=== PATIENT | female | born 1995 | race Caucasian/White ===

== ENCOUNTER → 2018-04-17 11:05 | Outpatient (CLI) | payer MEDICAID ==
[2016-02-11 09:44] VITALS: BMI 26.1
[~2018-04-17 11:05] MED LIST: CEFPROZIL500 MG PO; FLAGYL500 MG PO; IBUPROFEN600 MG PO; KEFLEX500 MG PO; PERCOCET 5-3251 TAB PO; PHENERGAN DM SYR5 ML PO; PRENATAL COMPLE1 TAB PO; ZOVIRAX400 MG PO
== END | disposition home or self-care (01) ==
LOC: D.US 11:05
PROVIDERS: ATTEND Family Medicine
DX: O26.899 Other specified pregnancy related conditions, unspecified trimester (principal); R10.30 Lower abdominal pain, unspecified

== ENCOUNTER 2018-05-26 01:21 | Emergency (ER) | payer MEDICAID ==
[2018-05-26] MEDS ORDERED: NEURONTIN600 MG PO (01:26)
[2018-05-26] MEDS ORDERED: PHENERGAN25 M1 PO (01:26)
[2018-05-26] MEDS ORDERED: ULTRAM50 MG PO (01:26)
[2018-05-26] MEDS ORDERED: PRENATAL VIT (01:27)
[2018-05-26] MEDS ORDERED: FERROUS SULFAT325 MG PO (01:27)
[2018-05-26 02:06] LABS: APPEARANCE HAZY (CLEAR); BACTERIA FEW /hpf (NONE SEEN); BILIRUBIN NEGATIVE (NEGATIVE); COLOR YELLOW (YELLOW); EPITHELIAL CELLS 0-5 /hpf (0-5); GLUCOSE NEGATIVE (NEGATIVE); KETONE NEGATIVE (NEGATIVE); MUCUS >1+ /lpf (NONE SEEN); NITRITE NEGATIVE (NEGATIVE); PROTEIN NEGATIVE (NEGATIVE); RED CELLS - URINE 0-5 /hpf (0-5); SPECIFIC GRAVITY 1.025 (1.005-1.020); UROBILINOGEN NORMAL (NORMAL)
[2018-05-26] MEDS ORDERED: KEFLEX500 MG PO (02:24)
[2018-05-26] MEDS ORDERED: TYLENOL W/CODEI1 TAB PO (02:24)
== END 2018-05-26 02:45 | disposition home or self-care (01) ==
LOC: D.ER 01:21
PROVIDERS: Emergency Medicine
DX: O23.41 Unspecified infection of urinary tract in pregnancy, first trimester (principal); Z3A.11 11 weeks gestation of pregnancy; K08.89 Other specified disorders of teeth and supporting structures

== ENCOUNTER → 2018-07-09 00:39 | Outpatient (CLI) | payer MEDICAID ==
[2018-05-26 01:25] VITALS: BMI 26.1
[~2018-07-09 00:39] MED LIST changes: +FERROUS SULFAT325 MG PO; +NEURONTIN600 MG PO; +PHENERGAN25 M1 PO; +PRENATAL VIT; +TYLENOL W/CODEI1 TAB PO; +ULTRAM50 MG PO
[2018-07-09 01:43] LABS: HEMATOCRIT 33.4 % (36.0-48.0); HEMOGLOBIN 12.1 g/dL (12-16); MCH 30.5 pg (26.0-34.0); MCHC 36.2 g/dL (31.0-37.0); MCV 84.1 fL (80.0-100.0); MEAN PLATELET VOLUME 8.9 fL (7.4-10.4); NEUTROPHILS 63.3 % (40-80); PLATELET COUNT 199 10x3/uL (130-400); RBC 3.97 10x6/uL (4.00-5.40); RDW 12.5 % (11.5-14.5); WBC 8.3 10x3/uL (4.8-10.8)
[2018-07-09 01:47] LABS: APPEARANCE HAZY (CLEAR); BILIRUBIN NEGATIVE (NEGATIVE); COLOR YELLOW (YELLOW); GLUCOSE NEGATIVE (NEGATIVE); KETONE SMALL mg/dL (NEGATIVE); NITRITE NEGATIVE (NEGATIVE); PROTEIN TRACE mg/dL (NEGATIVE); SPECIFIC GRAVITY 1.025 (1.005-1.020); UROBILINOGEN NORMAL (NORMAL)
[2018-07-09 01:52] LABS: BACTERIA MODERATE /hpf (NONE SEEN); EPITHELIAL CELLS OCC /hpf (0-5); HYALINE CAST RARE /lpf (NONE SEEN); MUCUS >1+ /lpf (NONE SEEN); RED CELLS - URINE 0-5 /hpf (0-5); WHITE CELLS - URINE 0-5 /hpf (0-5)
[2018-07-09 02:08] LABS: ALBUMIN 2.9 g/dL (3.4-5.0); ALKALINE PHOSPHATASE 40 U/L (46-116); ALT (SGPT) 19 U/L (10-68); BILIRUBIN - TOTAL 0.32 mg/dL (0.2-1.3); CALC OSMOLALITY 270 mosm/kg (275-300); CALCIUM 7.9 mg/dL (8.5-10.1); CARBON DIOXIDE 23.7 mmol/L (21.0-32.0); CHLORIDE - SERUM 103 mmol/L (98-107); CREATININE - SERUM 0.5 mg/dL (0.6-1.3); GLUCOSE 90 mg/dL (74-106); POTASSIUM - SERUM 3.2 mmol/L (3.5-5.1); PROTEIN - SERUM 6.3 g/dL (6.4-8.2); SODIUM 137 mmol/L (136-145); UREA NITROGEN 4 mg/dL (7-18); eGFR NON AFRICAN AMERICAN > 90 mL/min (90-120)
[2018-07-11 19:08] LABS: CHLAMYDIA TRACHOMATIS, NAA Negative (Negative)
== END | disposition home or self-care (01) ==
LOC: D.LDO 00:39
PROVIDERS: ATTEND Obstetrics & Gynecology
DX: O26.892 Other specified pregnancy related conditions, second trimester (principal); Z3A.17 17 weeks gestation of pregnancy

== ENCOUNTER → 2018-10-17 14:26 | Outpatient (CLI) | payer MEDICAID ==
[2018-05-26 01:25] VITALS: BMI 26.1
[~2018-10-17 14:26] MED LIST changes: +ACETAMINOPHEN500 M1 PO; +ALBUTEROL SULF8.5 GM INH
[2018-10-17 15:04] LABS: BASOPHILS 0 % (0-2); EOSINOPHILS 1.1 % (0-7); HEMATOCRIT 32.4 % (36.0-48.0); HEMOGLOBIN 11.3 g/dL (12-16); IMMATURE GRANULOCYTES 0.4 % (0-5); LYMPHOCYTES 23.5 % (15-50); MCH 29.8 pg (26.0-34.0); MCHC 34.9 g/dL (31.0-37.0); MCV 85.5 fL (80.0-100.0); MEAN PLATELET VOLUME 9.6 fL (7.4-10.4); MONOCYTES 9.1 % (2-11); NEUTROPHILS 65.9 % (40-80); RBC 3.79 10x6/uL (4.00-5.40); RDW 13.5 % (11.5-14.5); WBC 7.6 10x3/uL (4.8-10.8)
[2018-10-17 15:05] LABS: PLATELET COUNT 241 10x3/uL (130-400)
[2018-10-17 15:05] LABS: APPEARANCE SL CLDY (CLEAR); BILIRUBIN NEGATIVE (NEGATIVE); COLOR YELLOW (YELLOW); GLUCOSE NEGATIVE (NEGATIVE); KETONE NEGATIVE (NEGATIVE); NITRITE NEGATIVE (NEGATIVE); PROTEIN TRACE mg/dL (NEGATIVE); UROBILINOGEN NORMAL (NORMAL)
[2018-10-17 15:06] LABS: BACTERIA FEW /hpf (NONE SEEN); RED CELLS - URINE 0-5 /hpf (0-5)
[2018-10-17 15:07] LABS: MUCUS <1+ /lpf (NONE SEEN)
[2018-10-17 15:17] LABS: ALBUMIN 2.6 g/dL (3.4-5.0); ALKALINE PHOSPHATASE 104 U/L (46-116); ALT (SGPT) 26 U/L (10-68); BILIRUBIN - TOTAL 0.15 mg/dL (0.2-1.3); CALC OSMOLALITY 278 mosm/kg (275-300); CALCIUM 8.4 mg/dL (8.5-10.1); CARBON DIOXIDE 22.9 mmol/L (21.0-32.0); CHLORIDE - SERUM 107 mmol/L (98-107); CREATININE - SERUM 0.5 mg/dL (0.6-1.3); GLUCOSE 109 mg/dL (74-106); POTASSIUM - SERUM 3.9 mmol/L (3.5-5.1); PROTEIN - SERUM 5.9 g/dL (6.4-8.2); SODIUM 141 mmol/L (136-145); UREA NITROGEN 5 mg/dL (7-18); eGFR NON AFRICAN AMERICAN > 90 mL/min (90-120)
== END | disposition home or self-care (01) ==
LOC: D.LDO 14:26
PROVIDERS: ATTEND Obstetrics & Gynecology
DX: O36.8130 Decreased fetal movements, third trimester, not applicable or unspecified (principal); Z3A.32 32 weeks gestation of pregnancy

== ENCOUNTER → 2018-11-04 14:04 | Outpatient (CLI) | payer MEDICAID ==
[2018-05-26 01:25] VITALS: BMI 26.1
[2018-11-04 15:05] LABS: APPEARANCE CLEAR (CLEAR); BILIRUBIN NEGATIVE (NEGATIVE); COLOR YELLOW (YELLOW); GLUCOSE NEGATIVE (NEGATIVE); KETONE NEGATIVE (NEGATIVE); NITRITE NEGATIVE (NEGATIVE); PROTEIN NEGATIVE (NEGATIVE); UROBILINOGEN NORMAL (NORMAL)
[2018-11-04 15:07] LABS: BACTERIA FEW /hpf (NEGATIVE); EPITHELIAL CELLS 0-5 /hpf (0-5); WHITE CELLS - URINE 0-5 /hpf (NEGATIVE)
== END | disposition home or self-care (01) ==
LOC: D.LDO 14:04
PROVIDERS: ATTEND Student in an Organized Health Care Education/Training Program
DX: O26.893 Other specified pregnancy related conditions, third trimester (principal); Z3A.34 34 weeks gestation of pregnancy

== ENCOUNTER 2018-11-16 03:01 | Outpatient (CLI) | payer MEDICAID ==
[2018-05-26 01:25] VITALS: BMI 26.1
[2018-11-16 03:46] LABS: UDS - AMPHET NEGATIVE QUAL (NEGATIVE); UDS - BARB POSITIVE QUAL (NEGATIVE); UDS - BENZO NEGATIVE QUAL (NEGATIVE); UDS - COCAINE NEGATIVE QUAL (NEGATIVE); UDS - OPIATE NEGATIVE QUAL (NEGATIVE); UDS - PCP NEGATIVE QUAL (NEGATIVE); UDS - THC NEGATIVE QUAL (NEGATIVE)
[2018-11-16 03:50] LABS: COLOR DK YELLOW (YELLOW)
[2018-11-16 03:51] LABS: APPEARANCE HAZY (CLEAR); BACTERIA FEW /hpf (NEGATIVE); BILIRUBIN NEGATIVE (NEGATIVE); EPITHELIAL CELLS 0-5 /hpf (0-5); GLUCOSE NEGATIVE (NEGATIVE); KETONE LARGE mg/dL (NEGATIVE); NITRITE NEGATIVE (NEGATIVE); PROTEIN TRACE mg/dL (NEGATIVE); SPECIFIC GRAVITY 1.015 (1.005-1.020); UROBILINOGEN NORMAL (NORMAL); WHITE CELLS - URINE 25-50 /hpf (NEGATIVE)
== END 2018-11-16 04:55 | disposition home or self-care (01) ==
LOC: D.LDO 03:01
PROVIDERS: ATTEND Student in an Organized Health Care Education/Training Program
DX: O47.9 False labor, unspecified (principal)

== ENCOUNTER → 2018-11-22 10:47 | Outpatient (CLI) | payer MEDICAID ==
[2018-05-26 01:25] VITALS: BMI 26.1
[~2018-11-22 10:47] MED LIST changes: +VALTREX500 MG PO
[2018-11-22 11:39] LABS: APPEARANCE CLEAR (CLEAR); COLOR YELLOW (YELLOW); NITRITE NEGATIVE (NEGATIVE); PROTEIN TRACE mg/dL (NEGATIVE)
[2018-11-22 11:40] LABS: BACTERIA FEW /hpf (NEGATIVE); BILIRUBIN NEGATIVE (NEGATIVE); GLUCOSE NEGATIVE (NEGATIVE); KETONE NEGATIVE (NEGATIVE); UROBILINOGEN NORMAL (NORMAL)
[2018-11-22 11:41] LABS: CALCIUM OXALATE CRYSTALS 0-5 /hpf (NONE SEEN); EPITHELIAL CELLS 0-5 /hpf (0-5); RED CELLS - URINE 0-5 /hpf (0-5); WHITE CELLS - URINE 0-5 /hpf (NEGATIVE)
== END | disposition home or self-care (01) ==
LOC: D.LDO 10:47
PROVIDERS: ATTEND Obstetrics & Gynecology
DX: O47.9 False labor, unspecified (principal)

== ENCOUNTER → 2018-11-25 18:06 | Outpatient (CLI) | payer MEDICAID ==
[2018-05-26 01:25] VITALS: BMI 26.1
[2018-11-25 18:57] LABS: APPEARANCE CLEAR (CLEAR); BILIRUBIN NEGATIVE (NEGATIVE); COLOR YELLOW (YELLOW); GLUCOSE NEGATIVE (NEGATIVE); KETONE NEGATIVE (NEGATIVE); NITRITE NEGATIVE (NEGATIVE); PROTEIN NEGATIVE (NEGATIVE); UROBILINOGEN NORMAL (NORMAL)
[2018-11-25 18:58] LABS: BACTERIA FEW /hpf (NEGATIVE); RED CELLS - URINE 0-5 /hpf (0-5); WHITE CELLS - URINE OCC /hpf (NEGATIVE)
== END | disposition home or self-care (01) ==
LOC: D.LDO 18:06
PROVIDERS: ATTEND Student in an Organized Health Care Education/Training Program
DX: O26.893 Other specified pregnancy related conditions, third trimester (principal); Z3A.37 37 weeks gestation of pregnancy; R10.9 Unspecified abdominal pain

== ENCOUNTER → 2018-11-27 15:15 | Outpatient (CLI) | payer MEDICAID ==
[2018-05-26 01:25] VITALS: BMI 26.1
== END | disposition home or self-care (01) ==
LOC: D.LDO 15:15
PROVIDERS: ATTEND Obstetrics & Gynecology
DX: O36.8130 Decreased fetal movements, third trimester, not applicable or unspecified (principal); Z3A.37 37 weeks gestation of pregnancy

== ENCOUNTER 2018-12-03 21:12 | Inpatient (IN) | payer MEDICAID ==
[~2018-12-03] VITALS: Ht 170.2 cm; Wt 76.2 kg
[~2018-12-03 21:12] MED LIST changes: -VALTREX500 MG PO
[2018-12-03 22:07] VITALS: BP 121/83; Ht 170.2 cm; Wt 76.2 kg
[2018-12-03] MEDS ORDERED: VALTREX500 MG PO (22:07)
[2018-12-03 22:46] LABS: HEMATOCRIT 39.3 % (36.0-48.0); HEMOGLOBIN 13.4 g/dL (12-16); MCH 29.9 pg (26.0-34.0); MCHC 34.1 g/dL (31.0-37.0); MCV 87.7 fL (80.0-100.0); MEAN PLATELET VOLUME 10.5 fL (7.4-10.4); RBC 4.48 10x6/uL (4.00-5.40); RDW 13.7 % (11.5-14.5); WBC 7.4 10x3/uL (4.8-10.8)
[2018-12-03 22:50] LABS: APPEARANCE HAZY (CLEAR); BILIRUBIN NEGATIVE (NEGATIVE); COLOR DK YELLOW (YELLOW); GLUCOSE NEGATIVE (NEGATIVE); KETONE SMALL mg/dL (NEGATIVE); NITRITE NEGATIVE (NEGATIVE); PROTEIN TRACE mg/dL (NEGATIVE); UROBILINOGEN NORMAL (NORMAL)
[2018-12-03 22:52] LABS: BACTERIA MANY /hpf (NEGATIVE); EPITHELIAL CELLS 0-5 /hpf (0-5); RED CELLS - URINE 25-50 /hpf (0-5)
[2018-12-03 22:53] LABS: UDS - AMPHET NEGATIVE QUAL (NEGATIVE); UDS - BARB NEGATIVE QUAL (NEGATIVE); UDS - BENZO NEGATIVE QUAL (NEGATIVE); UDS - COCAINE NEGATIVE QUAL (NEGATIVE); UDS - OPIATE NEGATIVE QUAL (NEGATIVE); UDS - PCP NEGATIVE QUAL (NEGATIVE); UDS - THC NEGATIVE QUAL (NEGATIVE)
--- NOTE | 2018-12-04 19:19 | NUR ---
BEDSIDE REPORT COMPLETED.
--- NOTE | 2018-12-04 19:38 | NUR ---
PT AMBULATORY IN HALLWAY WITH SIGNIFICANT OTHER.
[2018-12-04 20:20] VITALS: BP 123/76
--- NOTE | 2018-12-04 20:20 | NUR ---
SHIFT ASSESSMENT COMPLETED, SEE FLOWSHEET
--- NOTE | 2018-12-04 20:30 | NUR ---
DR WOODSON CALLED FOR PAIN MEDICATION ORDERS, NEW ORDERS NOTED. SEE EMAR
--- NOTE | 2018-12-04 20:35 | NUR ---
ADMINISTERED TORADOL PER MD ORDERS. SSEE EMAR
--- NOTE | 2018-12-04 21:40 | NUR ---
ADMINISTERED TYLENOL#3 AND XANAX PER MD ORDERS AND PT REQUEST. SEE EMAR
--- NOTE | 2018-12-04 23:30 | NUR ---
PT SITTING UP IN BED HOLDING , SIGNIFICANT OTHER IN BED WITH HER. STATES THAT SHE IS READY FOR MORE PAIN MEDICINE. EXPLAINED THAT IT WASNT TIME YET, PT VERBALIZES UNDERSTANDING.
--- NOTE | 2018-12-05 | NUR ---
PT AMBULATING IN HALLWAY, NO NEEDS IDENTIFIED.
--- NOTE | 2018-12-05 00:10 | NUR ---
PT BACK TO ROOM.
--- NOTE | 2018-12-05 00:30 | NUR ---
PT AMBULATING IN HALLWAY
--- NOTE | 2018-12-05 00:45 | NUR ---
PT BACK TO LABOR UNIT, ASKING WHERE A VENDING MACHINE IS. PT GIVEN DIRECTIONS TO THE NEAREST VENDING MACHINE.
--- NOTE | 2018-12-05 00:50 | NUR ---
PT BACK TO ROOM, PT VOIDED EARLIER AND HAD A SMALL BLOD CLOT THAT SHE HAD SAVED ON SOME TISSUE. STATES THAT SHE WANTED ME TO SEE IT. QUARTER SIZED CLOT NOTED, ASSURED PT THAT IT WAS NORMAL AFTER LYING DOWN TO HAVE SMALL BLOOD CLOTS. PT VERBALIZED UNDERSTANDING. WILL CONTINUE TO MONITOR
--- NOTE | 2018-12-05 01:30 | NUR ---
PT AMBULATING IN HALLWAY TALKING ON HER CELL PHONE.
--- NOTE | 2018-12-05 01:45 | NUR ---
PT BACK TO ROOM, REQUESTING PAIN MEDICATION.
--- NOTE | 2018-12-05 01:46 | NUR ---
ADMINISTERED TYLENOL #3 PER MD ORDERS, PT REQUESTING VALIUM. STATES THAT THE LENCHOX IS MAKING HER WIRED AND THAT IF SHE TAKES VALIUM SHE CAN USUALLY CALM DOWN. EXPLAINED TO PT THAT SHE DIDNT HAVE THAT ORDERED.
[2018-12-05 01:47] VITALS: BP 128/79
--- NOTE | 2018-12-05 03:11 | NUR ---
TORADOL ADMINISTERED, SEE EMAR
--- NOTE | 2018-12-05 03:15 | NUR ---
PT REQUESTING THE NURSERY PHONE NUMBER FOR A BREAST PUMP. PHONE NUMBER PROVIDED AND THIS RN WENT TO THE NURSERY TO INFORM KENZIE OF PTS REQUEST. BREAST PUMP TO PATIENT PER THIS RN. PT IN BATHROOM AT THIS TIME AND INFORMED TO CALL KENZIE WHEN SHE WAS READY TO USE THE PUMP AND SHE WOULD ASSIST HER.
[2018-12-05 07:13] LABS: RAPID PLASMA REAGIN Non Reactive (Non Reactive)
--- NOTE | 2018-12-05 08:43 | NUR ---
THIS RN TO ROOM FOR SHIFT ASSESSMENT. SHIFT ASSESSMENT COMPLETED, PT RATING PAIN 7/10 AT THIS TIME, REQUESTING PAIN MEDS. MEDS ADMIN ORDERED PRN PAIN AND SCHEDULED ANTIBIOTIC, SEE EMAR FOR DOC. PT DENIES CONCERNS WITH HEAVY LOCHIA, REPORTS PASSING A LARGE CLOT DURING THE NIGHT WHICH SHE SHOWED TO HER NURSE, BUT STATES BLEEDING HAS BEEN INJECTION SPECIALIST SINCE. PT INSTRUCTED ON S/S TO REPORT. FF, ML, U/2. SMALL RUBRA LOCHIA. THIS RN LOOKS TO ASSESS IV AND PT REPORTS HER IV HUNG ON SOMETHING IN HER PURSE AND GOT PULLED OUT, BUT DID PT ATTEMPTING TO FEED INFANT AT THIS TIME, WILL RETURN FOR VS WHEN PT PT FINISHED FEEDING . SRUx2, CL IN REACH. WILL CONT TO MONITOR.
--- NOTE | 2018-12-05 10:55 | NUR ---
THIS RN TO ROOM FOR PT CHECK. PT LYING IN BED ON LEFT SIDE, RESTING WITH EYES CLOSED, RESP EVEN AND UNLABORED. LIGHTS IN ROOM DIM FOR REST. SIG OTHER ON BEDSIDE COUCH. SRUx2, CL IN REACH. PT LEFT UNDISTURBED FOR REST. WILL CONT TO MONITOR.
[2018-12-05 12:16] VITALS: BP 121/78
--- NOTE | 2018-12-05 12:16 | NUR ---
THIS RN TO ROOM FOR VS. VSS, SEE FLOWSHEET FOR DOC. PT RATING PAIN 6/10 AT THIS TIME, STATES SHE WILL BE READY FOR PAIN MED WHEN AVAILABLE PER ORDERED SCHEDULE. PT PROVIDED WITH ICE PER REQUEST. SUSAN Ann IN REACH. WILL CONT TO MONITOR.
--- NOTE | 2018-12-05 12:35 | NUR ---
PT OFF UNIT, AMBULATORY IN HALLS.
--- NOTE | 2018-12-05 12:51 | NUR ---
THIS RN TO ROOM FOR DISCHARGE TEACHING. PT C/O PAIN RATED APPROX 6/10. PT ADMIN PRN TYLENOL #3 ORDERED FOR PAIN, SEE EMAR FOR DOC. PT GIVEN PRESCRIPTION FOR PAIN CONTROL POST D/C TO HOME PROVIDED, WELL WRITTEN DISCHARGE INSTRUCTIONS. D/C TEACHING DONE. PT VERBALIZES UNDERSTANDING AND DENIES QUESTIONS, SIGNS CHART COPIES. INFANT TO ROOM BY NURSERY NURSE. WILL CONT TO MONITOR.
--- NOTE | 2018-12-05 13:50 | NUR ---
PT BACK TO ROOM AFTER AMBULATING OFF UNIT. DENIES NEEDS.
--- NOTE | 2018-12-05 14:47 | NUR ---
THIS RN TO ROOM, PT PACKING BELONGINGS FOR D/C TO HOME. PT ADMIN SCHEDULED TORADOL ORDERED, SEE EMAR FOR DOC. PT UPDATED ON STATUS OF , THAT SHE IS STILL GETTING HEARING SCREEN DONE. PT DENIES NEEDS. SRUx2, CL IN REACH.
--- NOTE | 2018-12-05 15:15 | NUR ---
PT BACK TO ROOM FROM AMBULATING OFF UNIT.
--- NOTE | 2018-12-05 18:33 | NUR ---
INFANT NOTED TO BE PROPERLY SECURED IN [place]. PT DID NOT WANT W/C OUT. OFF UNIT AMBULATORY WITH THIS RN AND FAMILY TO PRIVATE VEHICLE FOR D/C TO HOME, PT'S MOTHER TO DRIVE HER HOME. D/C'D WITH PT.
== END 2018-12-05 18:30 | disposition home or self-care (01) | DRG 768 ==
LOC: D.LD 21:12
PROVIDERS: ADMIT Obstetrics & Gynecology; ATTEND Obstetrics & Gynecology
PROC: 10E0XZZ Delivery of Products of Conception, External Approach (ICD-10-PCS; principal; 2018-12-05)
PROC: 0UBG7ZZ Excision of Vagina, Via Natural or Artificial Opening (ICD-10-PCS; 2018-12-05)
DX: O99.824 Streptococcus B carrier state complicating childbirth (principal); Z37.0 Single live birth; Z3A.39 39 weeks gestation of pregnancy; O75.89 Other specified complications of labor and delivery; N89.8 Other specified noninflammatory disorders of vagina

== ENCOUNTER 2019-06-09 08:10 | Day surgery (SDC) | payer MEDICAID ==
[2019-06-05 11:06] LABS: HEMATOCRIT 38.6 % (36.0-48.0); HEMOGLOBIN 12.7 g/dL (12-16); MCH 28.7 pg (26.0-34.0); MCHC 32.9 g/dL (31.0-37.0); MCV 87.1 fL (80.0-100.0); MEAN PLATELET VOLUME 9.2 fL (7.4-10.4); PLATELET COUNT 241 10x3/uL (130-400); RBC 4.43 10x6/uL (4.00-5.40); RDW 12.5 % (11.5-14.5); WBC 4.8 10x3/uL (4.8-10.8)
[2019-06-05 14:46] LABS: EOSINOPHILS 2 % (0-7); LYMPHOCYTES 51 % (15-50); MONOCYTES 8 % (2-11); NEUTROPHILS 39 % (40-80); PLATELET ESTIMATE NORMAL
[~2019-06-09] VITALS: Ht 167.6 cm; Wt 60.3 kg
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
[~2019-06-09 08:10] MED LIST changes: +CYCLOBENZAPRINE10 MG PO; +TYLENOL #4 W/CO1 TAB PO; +VALTREX500 MG PO; +ZYRTEC10 MG PO; +[UNRECOGNIZED DRUG - OTHER] PO
[2019-06-09 08:37] VITALS: BP 135/90; Ht 167.6 cm; Wt 60.3 kg
[2019-06-09 08:43] LABS: HCG URINE NEGATIVE (NEGATIVE)
--- NOTE | 2019-06-09 13:50 | NUR ---
DR WOODSON CONTACTED DUE TO PATIENT'S COMPLAINS OF PAIN AND REQUESTS FOR IV PAIN MEDICATION. PATIENT CONTINUES TO SLUR WORDS AND APPEAR SEDATED. THIS NURSE HAS CONCERNS ABOUT GIVING PATIENT IV PAIN MEDICATION AND THEN SENDING HER HOME DUE TO SOMNOLENCE AND DIZZINESS. PATIENT UPSET. DR WOODSON STATES HE WILL ADMIT PATIENT OVERNIGHT DUE TO PAIN CONTROL.
[2019-06-09 14:49] VITALS: BP 130/83
--- NOTE | 2019-06-09 14:49 | NUR ---
RECEIVED PT FROM OUTPATIENT DEPT VIA WHEELCHAIR TO ROOM 1274. PT OUT OF WHEELCHAIR AND AMBULATORY IN ROOM. PT SITS UP ON SIDE OF BED. VSS. PT STATES "WHEN CAN I GO HOME?" PT STATES "I JUST WANTED SOMETHING TO HELP ME WITH THE PAIN FOR THE RIDE HOME". STATES "THERE ARE A LOT OF POT HOLES AND STUFF". PT REPOSITIONS TO SUPINE POSITION FOR THIS NURSE TO ASSESS INCISIONS. 2 LAP INCISIONS NOTED. ONE TO UMB AND ONE ABOVE MONS AREA. BOTH WITH GLUE AND NO REDNESS, SWELLING OR DRAINAGE NOTED. PT STATES "UGH, HE MADE ANOTHER INCISION". PT STATES HAS QUESTIONS FOR DR WOODSON. STATES "MY MOTHER DIDN'T ASK ANY QUESTIONS WHEN HE TALKED TO HER". QUESTIONS FOR DR WOODSON OBTAINED FROM PT. PT AGAIN STATES DESIRE TO DC HOME. PT ORIENTED TO ROOM, BED, AND CALL LIGHT. SR UPX 2. CALL LIGHT IN REACH.
--- NOTE | 2019-06-09 15:00 | NUR ---
DR WOODSON NOTIFIED OF PT REQUEST TO [facility] HOME, QUESTIONS FOR PT ANSWERED. ORDERS RECEIVED.
--- NOTE | 2019-06-09 15:06 | NUR ---
THIS NURSE BACK TO ROOM. PT STANDING UP BESIDE BED IV DISCONNECTED WITH BLOOD NOTED IN TUBING. PT DRESSING AT THIS TIME.
--- NOTE | 2019-06-09 15:07 | NUR ---
PIV DC'D WITH [facility]HELON INTACT. PRESSURE BANDAGE TO SITE. PT STATES "THAT PAPER TAPE EVEN MAKES ME BREAK OUT". PT RUBBING IV SITE AREA WITH ALCOHOL PAD OBTAINED FROM EMERGENCY DEPT TECH ROOM.
[2019-06-09] MEDS ORDERED: NEURONTIN 300300 MG PO (15:16)
[2019-06-09] MEDS ORDERED: TORADOL10 MG PO (15:16)
[2019-06-09] MEDS ORDERED: PERCOCET 7.5/321 TAB PO (15:16)
--- NOTE | 2019-06-09 15:25 | NUR ---
DISCHARGE INSTRUCTIONS GIVEN TO PT. PT VERBALIZES UNDERSTANDING OF ALL INSTRUCTIONS. COPIES GIVEN TO PT. RX FOR PERCOCET, NEURONTIN AND TORADOL GIVEN TO PT. PT AWAITS RIDE.
--- NOTE | 2019-06-09 16:09 | NUR ---
PT AMBULATORY IN HALLS. STATES MOTHER ON WAY TO PATIENT ACCESS ASSOCIATE PT. PT REQUESTS AND RECEIVES APPLE JUICE.
--- NOTE | 2019-06-09 16:45 | NUR ---
PT TAKEN OFF UNIT VIA W/C FOR D/C TO HOME. PT TO AWAITING PRIVATE VEHICLE WITH FAMILY MEMBER TO DRIVE HER HOME. D/C INSTRUCTIONS AND PRESCRIPTION IN HAND.
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
== END 2019-06-09 16:45 | disposition home or self-care (01) ==
LOC: D.OPS 08:10 → D.LD 14:45 → D.OPS 16:45
PROVIDERS: ATTEND Obstetrics & Gynecology
DX: N80.9 Endometriosis, unspecified (principal); N73.6 Female pelvic peritoneal adhesions (postinfective); G89.29 Other chronic pain; R10.2 Pelvic and perineal pain; N94.10 Unspecified dyspareunia

== ENCOUNTER 2019-06-15 20:10 | Emergency (ER) | payer OTHER ==
[~2019-06-15] VITALS: Ht 167.6 cm; Wt 56.8 kg
[~2019-06-15 20:10] MED LIST changes: +NEURONTIN 300300 MG PO; +PERCOCET 7.5/321 TAB PO; +TORADOL10 MG PO
[2019-06-15 20:13] VITALS: Ht 167.6 cm; Wt 56.8 kg
[2019-06-15 20:43] LABS: BASOPHILS 0.2 % (0-2); EOSINOPHILS 1.1 % (0-7); HEMATOCRIT 42.7 % (36.0-48.0); HEMOGLOBIN 13.8 g/dL (12-16); IMMATURE GRANULOCYTES 0.2 % (0-5); LYMPHOCYTES 38.6 % (15-50); MCH 28.7 pg (26.0-34.0); MCHC 32.3 g/dL (31.0-37.0); MCV 88.8 fL (80.0-100.0); MEAN PLATELET VOLUME 8.8 fL (7.4-10.4); MONOCYTES 6.2 % (2-11); NEUTROPHILS 53.7 % (40-80); PLATELET COUNT 273 10x3/uL (130-400); RBC 4.81 10x6/uL (4.00-5.40); RDW 12.7 % (11.5-14.5); WBC 6.1 10x3/uL (4.8-10.8)
[2019-06-15 20:51] LABS: CALC OSMOLALITY 276 mosm/kg (275-300); CALCIUM 8.9 mg/dL (8.5-10.1); CARBON DIOXIDE 27.7 mmol/L (21.0-32.0); CHLORIDE - SERUM 103 mmol/L (98-107); CREATININE - SERUM 0.8 mg/dL (0.6-1.3); GLUCOSE 89 mg/dL (74-106); SODIUM 140 mmol/L (136-145); UREA NITROGEN 11 mg/dL (7-18); eGFR NON AFRICAN AMERICAN > 90 mL/min (90-120)
[2019-06-15 21:00] LABS: ALBUMIN 4.2 g/dL (3.4-5.0); ALKALINE PHOSPHATASE 71 U/L (30-120); ALT (SGPT) 30 U/L (10-68); BILIRUBIN - TOTAL 0.65 mg/dL (0.2-1.3); PROTEIN - SERUM 7.5 g/dL (6.4-8.2)
[2019-06-15 21:04] LABS: TROPONIN-I < 0.017 ng/mL (0.000-0.060)
[2019-06-15] MEDS ORDERED: FLAGYL500 MG PO (22:21)
[2019-06-15] MEDS ORDERED: IMODIUM2 MG PO (22:21)
[2019-06-15 22:42] VITALS: BP 113/78
== END 2019-06-15 22:42 | disposition home or self-care (01) ==
LOC: D.ER 20:10
PROVIDERS: Family Medicine
DX: K91.89 Other postprocedural complications and disorders of digestive system (principal); K50.00 Crohn's disease of small intestine without complications; K21.9 Gastro-esophageal reflux disease without esophagitis; R10.9 Unspecified abdominal pain